=== PATIENT | male | born 2000 | race Caucasian/White ===

== ENCOUNTER 2023-05-27 16:05 | Outpatient (REF) | payer MEDICAID, SELFPAY ==
[2023-05-27 18:44] LABS: CT PCR NOT DETECTED (Not Detect.); NG PCR NOT DETECTED (Not Detect.)
== END 2023-05-27 16:06 | disposition home or self-care (01) ==
LOC: HO.HHCLNP 16:05
PROVIDERS: Visit Provider Nurse Practitioner Primary Care
DX: Z11.3 Encounter for screening for infections with a predominantly sexual mode of transmission (principal)
CPT/HCPCS: 0353U

== ENCOUNTER 2023-10-26 17:07 | Outpatient (REF) | payer MEDICAID, SELFPAY ==
[2023-10-27 02:29] LABS: CT PCR NOT DETECTED (Not Detect.); NG PCR NOT DETECTED (Not Detect.)
== END 2023-10-26 17:08 | disposition home or self-care (01) ==
LOC: HO.HHCLNP 17:07
PROVIDERS: Visit Provider Nurse Practitioner Primary Care
DX: Z11.3 Encounter for screening for infections with a predominantly sexual mode of transmission (principal)
CPT/HCPCS: 0353U